=== PATIENT | male | born 1935 | race Asian ===

== ENCOUNTER 2018-04-19 20:00 | Emergency (ER) | payer OTHER ==
[~2018-04-19] VITALS: Ht 170.2 cm; Wt 85.0 kg
[~2018-04-19 20:00] MED LIST: AMIODARONE HCL 50 MG/ML 3 ML VIAL IVP ONE; CALCIUM CHLORIDE 100 MG/ML 10 ML SYRINGE IVP ONE; DEXTROSE 50%-WATER 25 GM/50 ML SYRINGE IVP ONE; EPINEPHrine 1:1,000 [1 MG/ML] AMP IM ONE; SODIUM BICARBONATE [ADULT] 8.4% 50 MEQ/50 ML SYRINGE IVP ONE
[2018-04-19 23:14] VITALS: BP 0/0
== END 2018-04-19 21:00 | disposition expired ==
LOC: EMS 20:01
DX: I46.9 Cardiac arrest, cause unspecified (principal)
CPT/HCPCS: 31500; 92950; 99291; J0171; J0282; J3490 ×2